=== PATIENT | male | born 1980 | race Caucasian/White ===

== ENCOUNTER 2021-09-07 12:51 | Emergency (ER) | payer MEDICARE, MEDICAID, SELFPAY ==
[2021-09-07 13:23] VITALS: BP 165/108; PULSE 88; RESP 24; TEMP 37; O2SAT 97
--- NOTE | 2021-09-07 13:28 | DI.RAD.S_ITS ---
PROCEDURE: XR CHEST 1V INDICATIONS: chest pain TECHNIQUE: One view of the chest was acquired. COMPARISON: None. FINDINGS: Surgical changes and devices: None. Lungs and pleura: Lungs are clear. No pleural effusions or pneumothorax. Mediastinum: Mediastinal contours appear normal. Heart size is normal. Bones and chest wall: No suspicious bony lesions. Overlying soft tissues appear unremarkable. IMPRESSION: No acute process. Dictated by: Daylin Michael M.D. on 09/07/2021 at 13:46 Approved by: Daylin Michael M.D. on 09/07/2021 at 13:46
[2021-09-07 13:48] LABS: Add Manual Diff / Slide Review NO; Basophils Absolute Auto 100 /uL (0-100); Basophils Percent Auto 0.7 % (0-2); Eosinophils Absolute Auto 200 /uL (0-450); Eosinophils Percent Auto 1.7 % (2-4); Hematocrit 43.2 % (41-53); Hemoglobin 14.8 g/dL (13.5-17.5); Lymphocytes Absolute Auto 2700 /uL (1100-4500); Lymphocytes Percent Auto 25.8 % (25-40); Mean Corpuscular HGB Conc 34.2 % (30-36); Mean Corpuscular Hemoglobin 28.8 PG (26-34); Mean Corpuscular Volume 84.3 fL (80-100); Monocytes Absolute Auto 800 /uL (0-900); Monocytes Percent Auto 7.3 % (3-14); Neutrophils Absolute Auto 6700 /uL (1500-7000); Neutrophils Percent Auto 64.5 % (50-75); Platelet Count 248 X10^3/uL (150-400); Red Blood Cell Count 5.13 X10^6/uL (4.5-5.9); Red Cell Distribution Width 14.2 % (11.6-14.8); White Blood Cell Count 10.4 X10^3/uL (4.5-11.0)
[2021-09-07 13:59] LABS: Alanine Aminotransferase 32 IU/L (<50); Albumin 4.3 g/dL (3.5-5.0); Alkaline Phosphatase 79 U/L (38-126); Aspartate Aminotransferase 23 IU/L (17-59); BUN Creatinine Ratio 13.6 (6-22); Bilirubin Total 0.6 mg/dL (0.2-1.3); Blood Urea Nitrogen 9 mg/dL (9-20); Calcium 8.8 mg/dL (8.4-10.2); Carbon Dioxide 26 mmol/L (22-32); Chloride 108 mmol/L (98-107); Creatine Kinase 68 U/L (55-170); Estimated Glomerular Filt Rate > 60 mL/min (>60); Glucose 102 mg/dL (70-100); Potassium 4.2 mmol/L (3.4-5.1); Sodium 143 mmol/L (137-145); Total Protein 7.9 g/dL (6.3-8.2)
[2021-09-07 14:00] LABS: Albumin Globulin Ratio 1.2 (1.0-2.8); Globulin 3.6 g/dL (1.7-4.1); HEMOLYSIS < 15 (0-50); Lipase 50 U/L (23-300)
[2021-09-07 14:12] LABS: Troponin I < 0.012 ng/mL (0.01-0.034)
[2021-09-07 14:22] LABS: D Dimer 396 ng/mL (<230)
--- NOTE | 2021-09-07 14:23 | ED.SOB ---
HPI - SOB/Dyspnea <Karen Lux PA-C - Last Filed: 09/08/21 20:51> General Chief Complaint: Shortness of Breath/Dyspnea Stated Complaint: high blood pressure 179/115, sent by [facility] Time Seen by Provider: 09/07/21 14:00 Source: patient Mode of arrival: Ambulatory History of Present Illness HPI Narrative: 41-year-old male with past medical history anxiety presents to the ED with 3 days of elevated blood pressure, worsening anxiety, dyspnea on exertion, chest pressure. Patient denies fever, chills, nausea, vomiting, abdominal pain, lightheadedness, dizziness, syncope. Patient endorses that he has been under increased stress due to his mother being ill and hospitalized recently. Related Data Allergies Allergy/AdvReac Type Severity Reaction Status Date / Time No Known Drug Allergies Allergy Unverified 09/07/21 11:40 Review of Systems <Karen Lux PA-C - Last Filed: 09/08/21 20:51> Review of Systems ROS Unobtainable: All systems reviewed & are unremarkable except as noted in HPI and below Constitutional Constitutional: Denies chills, Denies fatigue, Denies fever(s), Denies frequent falls, Reports headache(s), Denies lethargy and Denies weakness Eyes Eyes: Denies change in vision, Denies eye discharge, Denies irritation and Denies loss of vision ENT Ears, Nose, Mouth, and Throat: Denies change in voice, Denies dizziness, Reports headache(s), Denies neck pain, Denies sore throat and Denies throat swelling Cardiovascular Cardiovascular: Reports chest pain, Denies irregular heart rhythm, Reports lightheadedness, Denies palpitations, Reports dyspnea, Reports dyspnea on exertion and Denies orthopnea Respiratory Respiratory: Denies cough, Reports dyspnea, Reports dyspnea on exertion and Denies wheezing Gastrointestinal Gastrointestinal: Denies abdominal pain, Denies change in bowel habits, Denies diarrhea, Reports nausea and Denies vomiting Genitourinary Genitourinary: Denies hematuria, Denies flank pain, Denies urinary incontinence and Denies urinary urgency Musculoskeletal Musculoskeletal: Denies back pain, Denies muscle weakness, Denies neck pain, Denies numbness and Denies tingling Integumentary/Breasts Skin/Breast: Denies pruritus, Denies erythema, Denies rash and Denies wounds Neurologic Neurologic: Denies behavioral changes, Denies confusion, Denies dizziness, Denies frequent falls, Reports headache(s), Denies loss of vision, Denies numbness, Denies tingling and Denies weakness Psychiatric Psychiatric: Denies anxiety, Denies behavioral changes, Denies confusion, Denies depression, Denies homicidal ideation and Denies suicidal ideation Endocrine Endocrine: Denies fatigue, Denies flushing and Denies palpitations Hematologic/Lymphatic Hematologic/Lymphatic: Denies easy bruising Allergic/Immunologic Allergic/Immunologic: Denies urticaria, Denies throat swelling and Denies wheezing Patient History <Karen Lux PA-C - Last Filed: 09/08/21 20:51> Medical History Dysuria Gross hematuria High blood pressure Osteoarthritis Surgical History History of hip replacement Hx of appendectomy Hx of circumcision Family History Mother Cancer Father Hypertension CVA (cerebral vascular accident) Social History marital status: number of children: 3 Smoking Status: Current every day smoker Tobacco: How many years used: 10 alcohol intake: current caffeine: No Type(s) of exercise: other frequency: 1-2 times per week Smoking Status: Current every day smoker Exam <Karen Lux PA-C - Last Filed: 09/08/21 20:51> Narrative Exam Narrative: Const General:?cooperative, healthy appearing and comfortable [facility] Head:?normal to inspection Ears:?hearing grossly normal bilaterally Nose:?external nose normal Face and sinus:?normal facial exam and sinuses nontender Mouth:?oral mucosae normal Throat:?posterior oropharynx normal Eyes General:?appearance normal, both eyes and all related structures Neck Neck:?normal visual inspection and no lymphadenopathy noted Resp Effort & Inspection:?normal respiratory effort Auscultation:?clear to auscultation bilaterally Cardio Rate:?regular rate Rhythm:?regular rhythm Bilateral ankle swelling. Not tender to palpation. Neuro General:?patient alert, patient awake and patient oriented x3 Initial Vital Signs Initial Vital Signs: Vital Signs Temperature 98.6 F 09/07/21 13:23 Pulse Rate 88 09/07/21 13:23 Respiratory Rate 24 09/07/21 13:23 Blood Pressure 165/108 H 09/07/21 13:23 Pulse Oximetry 97 09/07/21 13:23 Oxygen Delivery Method 09/07/21 13:23 <Bhargavi Cross DO - Last Filed: 09/09/21 09:32> Initial Vital Signs Initial Vital Signs: Vital Signs Temperature 98.6 F 09/07/21 13:23 Pulse Rate 88 09/07/21 13:23 Respiratory Rate 24 09/07/21 13:23 Blood Pressure 165/108 H 09/07/21 13:23 Pulse Oximetry 97 09/07/21 13:23 Oxygen Delivery Method 09/07/21 13:23 Course <Karen Lux PA-C - Last Filed: 09/08/21 20:51> Orders Ordered: Discontinued Medications Hydroxyzine Pamoate (Hydroxyzine Pamoate 25 Mg Capsule) 50 mg PO NOW ONE Stop: 09/07/21 14:22 Last Admin: 09/07/21 14:28 Dose: 50 mg Documented By: ADK Vital Signs Vital signs: Vital Signs - 8 hr 09/07/21 13:23 09/07/21 15:09 Temperature 98.6 F Pulse Rate 88 69 Respiratory Rate 24 18 Blood Pressure 165/108 H 136/86 Pulse Oximetry 97 Oxygen Delivery Method Room Air <Bhargavi Cross DO - Last Filed: 09/09/21 09:32> Orders Ordered: Discontinued Medications Hydroxyzine Pamoate (Hydroxyzine Pamoate 25 Mg Capsule) 50 mg PO NOW ONE Stop: 09/07/21 14:22 Last Admin: 09/07/21 14:28 Dose: 50 mg Documented By: ADK Vital Signs Vital signs: Vital Signs - 8 hr 09/07/21 13:23 09/07/21 15:09 Temperature 98.6 F Pulse Rate 88 69 Respiratory Rate 24 18 Blood Pressure 165/108 H 136/86 Pulse Oximetry 97 Oxygen Delivery Method Room Air MDM - SOB/Dyspnea <Karen Lux PA-C - Last Filed: 09/08/21 20:51> Lab Data Result diagrams: 09/07/21 13:37 09/07/21 13:37 Labs: Lab Results 09/07/21 09/07/21 09/07/21 Range/Units 13:37 13:37 13:37 WBC 10.4 (4.5-11.0) X10^3/uL RBC 5.13 (4.5-5.9) X10^6/uL Hgb 14.8 (13.5-17.5) g/dL Hct 43.2 (41-53) % MCV 84.3 (80-100) fL MCH 28.8 (26-34) PG MCHC 34.2 (30-36) % RDW 14.2 (11.6-14.8) % Plt Count 248 (150-400) X10^3/uL Neut % (Auto) 64.5 (50-75) % Lymph % (Auto) 25.8 (25-40) % [place] % (Auto) 7.3 (3-14) % Eos % (Auto) 1.7 L (2-4) % Baso % (Auto) 0.7 (0-2) % Neut # (Auto) 6700 (9651-4500) /uL Lymph # (Auto) 2700 (0948-6687) /uL [place] # (Auto) 800 (0-900) /uL Eos # (Auto) 200 (0-450) /uL Baso # (Auto) 100 (0-100) /uL D-Dimer (<230) ng/mL Sodium 143 (137-145) mmol/L Potassium 4.2 (3.4-5.1) mmol/L Chloride 108 H (98-107) mmol/L Carbon Dioxide 26 (22-32) mmol/L BUN 9 (9-20) mg/dL Creatinine 0.66 (0.66-1.25) mg/dL Estimated GFR > 60 (>60) mL/min BUN/Creatinine Ratio 13.6 (6-22) Glucose 102 H (70-100) mg/dL Calcium 8.8 (8.4-10.2) mg/dL Magnesium 2.0 (1.6-2.3) mg/dL Total Bilirubin 0.6 (0.2-1.3) mg/dL AST 23 (17-59) IU/L ALT 32 (<50) IU/L Alkaline Phosphatase 79 (38-126) U/L Total Creatine Kinase 68 (55-170) U/L CK-MB (CK-2) TNP CK-MB (CK-2) Rel Index TNP Troponin I < 0.012 (0.01-0.034) ng/mL NT-Pro-B Natriuret Pep 105 (<125) pg/mL Total Protein 7.9 (6.3-8.2) g/dL Albumin 4.3 (3.5-5.0) g/dL Globulin 3.6 (1.7-4.1) g/dL Albumin/Globulin Ratio 1.2 (1.0-2.8) Lipase 50 (23-300) U/L 09/07/ Range/Units 13:37 WBC (4.5-11.0) X10^3/uL RBC (4.5-5.9) X10^6/uL Hgb (13.5-17.5) g/dL Hct (41-53) % MCV (80-100) fL MCH (26-34) PG MCHC (30-36) % RDW (11.6-14.8) % Plt Count (150-400) X10^3/uL Neut % (Auto) (50-75) % Lymph % (Auto) (25-40) % [place] % (Auto) (3-14) % Eos % (Auto) (2-4) % Baso % (Auto) (0-2) % Neut # (Auto) (2956-3803) /uL Lymph # (Auto) (1680-7154) /uL [place] # (Auto) (0-900) /uL Eos # (Auto) (0-450) /uL Baso # (Auto) (0-100) /uL D-Dimer 396 H (<230) ng/mL Sodium (137-145) mmol/L Potassium (3.4-5.1) mmol/L Chloride (98-107) mmol/L Carbon Dioxide (22-32) mmol/L BUN (9-20) mg/dL Creatinine (0.66-1.25) mg/dL Estimated GFR (>60) mL/min BUN/Creatinine Ratio (6-22) Glucose (70-100) mg/dL Calcium (8.4-10.2) mg/dL Magnesium (1.6-2.3) mg/dL Total Bilirubin (0.2-1.3) mg/dL AST (17-59) IU/L ALT (<50) IU/L Alkaline Phosphatase (38-126) U/L Total Creatine Kinase (55-170) U/L CK-MB (CK-2) CK-MB (CK-2) Rel Index Troponin I (0.01-0.034) ng/mL NT-Pro-B Natriuret Pep (<125) pg/mL Total Protein (6.3-8.2) g/dL Albumin (3.5-5.0) g/dL Globulin (1.7-4.1) g/dL Albumin/Globulin Ratio (1.0-2.8) Lipase (23-300) U/L Imaging Data CT scan - chest: Radiologist's Impression: PROCEDURE:? CT ANGIO CHEST PE PROTOCOL ? INDICATIONS:? SOB, recent surgery, elevated dimer ? TECHNIQUE:? After the administration of intravenous contrast, 2 mm thick sections acquired from the pulmonary apices to the posterior costophrenic angles.? 3-dimensional maximum intensity projection (MIP) coronal and sagittal reformats were then acquired through the thorax.? For radiation dose reduction, the following was used:? automated exposure control, adjustment of mA and/or kV according to patient size.? ? COMPARISON:? [facility], CR, XR CHEST 1V, 09/07/2021, 13:32. ? FINDINGS:? Image quality:? There is slightly suboptimal opacification of the pulmonary arteries, which may be related to patient respiration given more dense contrast material within the aorta and superior vena cava.? This mildly compromises evaluation of peripheral pulmonary arteries. ? Pulmonary arteries:? Pulmonary arteries are normal in size, and demonstrate no intraluminal filling defects to suggest central pulmonary embolism.? ? Lungs and pleura:? Lungs are clear.? No pleural effusions or pneumothorax.? Central and peripheral airways are patent.? ? Mediastinum:? Heart size is normal, without pericardial effusion.? No mediastinal or hilar adenopathy.? Thoracic aorta is normal in caliber and enhancement.? Esophagus is normal in caliber, without hiatal hernia.? ? Bones and chest wall:? No suspicious bony lesions.? Ribs and thoracic spine appear intact throughout.? Thyroid is unremarkable.? Mild bilateral gynecomastia.? No axillary or supraclavicular adenopathy.? ? Abdomen:? The liver is mildly hypoattenuating, consistent with fatty infiltration.? Visualized upper abdominal solid organs appear normal in the early arterial phase of enhancement.? ? IMPRESSION:? 1. No acute pulmonary embolus.? However, evaluation of the peripheral subsegmental pulmonary arteries is mildly compromised by suboptimal opacification of the pulmonary arteries. 2. No acute abnormality is seen in the chest. ? ? Dictated by: Castillo Galvez M.D. on 09/07/2021 at 15:47 ? ? Approved by: Castillo Galvez M.D. on 09/07/2021 at 15:57 ? Chest x-ray: Radiologist's Impression: PROCEDURE:? XR CHEST 1V ? INDICATIONS:? chest pain ? TECHNIQUE:? One view of the chest was acquired.? ? COMPARISON:? None. ? FINDINGS:? ? Surgical changes and devices:? None.? ? Lungs and pleura:? Lungs are clear.? No pleural effusions or pneumothorax.? ? Mediastinum:? Mediastinal contours appear normal.? Heart size is normal.? ? Bones and chest wall:? No suspicious bony lesions.? Overlying soft tissues appear unremarkable.? ? IMPRESSION:? No acute process. ? ? Dictated by: Daylin Michael M.D. on 09/07/2021 at 13:46 ? ? Approved by: Daylin Michael M.D. on 09/07/2021 at 13:46 ? [facility] Narrative Medical decision making narrative: 41-year-old male with past medical history anxiety presents to the ED with 3 days of elevated blood pressure, worsening anxiety, dyspnea on exertion. Concern for ACS versus PE versus pneumonia versus other. Obtained chest x-ray, EKG, labs, troponin, D-dimer. D-dimer elevated. CT PE ordered. CT PE without acute findings. Patient's symptoms likely due to increased stress, anxiety patient's symptoms resolved with hydroxyzine. Patient agreed to monitor his blood pressure at home, follow-up with his PCP for further evaluation treatment. ED return precautions discussed with patient. Patient verbalized understanding. <Bhargavi Cross, DO - Last Filed: 09/09/21 09:32> Lab Data Labs: Lab Results 09/07/21 09/07/21 09/07/21 Range/Units 13:37 13:37 13:37 WBC 10.4 (4.5-11.0) X10^3/uL RBC 5.13 (4.5-5.9) X10^6/uL Hgb 14.8 (13.5-17.5) g/dL Hct 43.2 (41-53) % MCV 84.3 (80-100) fL MCH 28.8 (26-34) PG MCHC 34.2 (30-36) % RDW 14.2 (11.6-14.8) % Plt Count 248 (150-400) X10^3/uL Neut % (Auto) 64.5 (50-75) % Lymph % (Auto) 25.8 (25-40) % [place] % (Auto) 7.3 (3-14) % Eos % (Auto) 1.7 L (2-4) % Baso % (Auto) 0.7 (0-2) % Neut # (Auto) 6700 (2502-5029) /uL Lymph # (Auto) 2700 (3192-6384) /uL [place] # (Auto) 800 (0-900) /uL Eos # (Auto) 200 (0-450) /uL Baso # (Auto) 100 (0-100) /uL D-Dimer (<230) ng/mL Sodium 143 (137-145) mmol/L Potassium 4.2 (3.4-5.1) mmol/L Chloride 108 H (98-107) mmol/L Carbon Dioxide 26 (22-32) mmol/L BUN 9 (9-20) mg/dL Creatinine 0.66 (0.66-1.25) mg/dL Estimated GFR > 60 (>60) mL/min BUN/Creatinine Ratio 13.6 (6-22) Glucose 102 H (70-100) mg/dL Calcium 8.8 (8.4-10.2) mg/dL Magnesium 2.0 (1.6-2.3) mg/dL Total Bilirubin 0.6 (0.2-1.3) mg/dL AST 23 (17-59) IU/L ALT 32 (<50) IU/L Alkaline Phosphatase 79 (38-126) U/L Total Creatine Kinase 68 (55-170) U/L CK-MB (CK-2) TNP CK-MB (CK-2) Rel Index TNP Troponin I < 0.012 (0.01-0.034) ng/mL NT-Pro-B Natriuret Pep 105 (<125) pg/mL Total Protein 7.9 (6.3-8.2) g/dL Albumin 4.3 (3.5-5.0) g/dL Globulin 3.6 (1.7-4.1) g/dL Albumin/Globulin Ratio 1.2 (1.0-2.8) Lipase 50 (23-300) U/L // Range/Units 13:37 WBC (4.5-11.0) X10^3/uL RBC (4.5-5.9) X10^6/uL Hgb (13.5-17.5) g/dL Hct (41-53) % MCV (80-100) fL MCH (26-34) PG MCHC (30-36) % RDW (11.6-14.8) % Plt Count (150-400) X10^3/uL Neut % (Auto) (50-75) % Lymph % (Auto) (25-40) % [place] % (Auto) (3-14) % Eos % (Auto) (2-4) % Baso % (Auto) (0-2) % Neut # (Auto) (2726-2454) /uL Lymph # (Auto) (6259-6718) /uL [place] # (Auto) (0-900) /uL Eos # (Auto) (0-450) /uL Baso # (Auto) (0-100) /uL D-Dimer 396 H (<230) ng/mL Sodium (137-145) mmol/L Potassium (3.4-5.1) mmol/L Chloride (98-107) mmol/L Carbon Dioxide (22-32) mmol/L BUN (9-20) mg/dL Creatinine (0.66-1.25) mg/dL Estimated GFR (>60) mL/min BUN/Creatinine Ratio (6-22) Glucose (70-100) mg/dL Calcium (8.4-10.2) mg/dL Magnesium (1.6-2.3) mg/dL Total Bilirubin (0.2-1.3) mg/dL AST (17-59) IU/L ALT (<50) IU/L Alkaline Phosphatase (38-126) U/L Total Creatine Kinase (55-170) U/L CK-MB (CK-2) CK-MB (CK-2) Rel Index Troponin I (0.01-0.034) ng/mL NT-Pro-B Natriuret Pep (<125) pg/mL Total Protein (6.3-8.2) g/dL Albumin (3.5-5.0) g/dL Globulin (1.7-4.1) g/dL Albumin/Globulin Ratio (1.0-2.8) Lipase (23-300) U/L ECG Data Interpretation: rupal-normal sinus rhythm with a NH interval 158 QRS 74 QTC 433 Discharge Plan Departure Patient Disposition: Home Clinical Impression: SOB (shortness of breath) Instructions: DI for High Blood Pressure Activity Restrictions/Additional Instructions: You were evaluated in the ED today for chest pain, shortness of breath. Your chest x-ray, EKG were normal. Given that your D-dimer value was elevated, we did a CT of the chest to rule out a pulmonary embolism or blood clots in your lungs. Your CT was without acute findings. Your high blood pressure readings today could be attributed to anxiety, stress, however it could also be that your blood pressure is tending to be elevated on a regular basis. Please obtain a blood pressure cuff and record your blood pressures daily at home. Please follow-up with your PCP with a blood pressure readings for further evaluation and treatment. Return to the ED if your symptoms worsen, you have worsening chest pain, shortness of breath, nausea, vomiting. Visit Report Forms: Patient Portal/API <Bhargavi Cross DO - Last Filed: 09/09/21 09:32> Cosign ED Attending Cecily Attestation: I was immediately available in the department for consultation. Documentation has been reviewed. I agree with assessment and plan.
[2021-09-07] MEDS: hydrOXYzine pamoate 25 MG CAPSULE 50 MG PO (14:28)
[2021-09-07 14:44] LABS: NT-proBNP (BNP-Adult 18+) 105 pg/mL (<125)
--- NOTE | 2021-09-07 15:04 | DI.CT.S_ITS ---
PROCEDURE: CT ANGIO CHEST PE PROTOCOL INDICATIONS: SOB, recent surgery, elevated dimer TECHNIQUE: After the administration of intravenous contrast, 2 mm thick sections acquired from the pulmonary apices to the posterior costophrenic angles. 3-dimensional maximum intensity projection (MIP) coronal and sagittal reformats were then acquired through the thorax. For radiation dose reduction, the following was used: automated exposure control, adjustment of mA and/or kV according to patient size. COMPARISON: [facility], CR, XR CHEST 1V, 09/07/2021, 13:32. FINDINGS: Image quality: There is slightly suboptimal opacification of the pulmonary arteries, which may be related to patient respiration given more dense contrast material within the aorta and superior vena cava. This mildly compromises evaluation of peripheral pulmonary arteries. Pulmonary arteries: Pulmonary arteries are normal in size, and demonstrate no intraluminal filling defects to suggest central pulmonary embolism. Lungs and pleura: Lungs are clear. No pleural effusions or pneumothorax. Central and peripheral airways are patent. Mediastinum: Heart size is normal, without pericardial effusion. No mediastinal or hilar adenopathy. Thoracic aorta is normal in caliber and enhancement. Esophagus is normal in caliber, without hiatal hernia. Bones and chest wall: No suspicious bony lesions. Ribs and thoracic spine appear intact throughout. Thyroid is unremarkable. Mild bilateral gynecomastia. No axillary or supraclavicular adenopathy. Abdomen: The liver is mildly hypoattenuating, consistent with fatty infiltration. Visualized upper abdominal solid organs appear normal in the early arterial phase of enhancement. IMPRESSION: 1. No acute pulmonary embolus. However, evaluation of the peripheral subsegmental pulmonary arteries is mildly compromised by suboptimal opacification of the pulmonary arteries. 2. No acute abnormality is seen in the chest. Dictated by: Castillo Galvez M.D. on 09/07/2021 at 15:47 Approved by: Castillo Galvez M.D. on 09/07/2021 at 15:57
[2021-09-07 15:09] VITALS: BP 136/86; PULSE 69; RESP 18
== END 2021-09-07 16:15 | disposition home or self-care (01) ==
PROVIDERS: Emergency Medicine; Emergency Provider Student in an Organized Health Care Education/Training Program
DX: R06.02 Shortness of breath (principal); R07.9 Chest pain, unspecified; R51.9 Headache, unspecified; I10 Essential (primary) hypertension; R79.89 Other specified abnormal findings of blood chemistry; R31.0 Gross hematuria; R30.0 Dysuria
CPT/HCPCS: 36415; 51798; 71045; 71275; 80053; 81002; 82550; 83690; 83735; 83880; 84484; 85025; 85379; 93005; 99215; 99284; Q9967

== ENCOUNTER → 2021-12-17 12:54 | Outpatient (CLI) | payer MEDICARE, SELFPAY ==
--- NOTE | 2021-12-17 12:57 | DI.CT.S_ITS ---
PROCEDURE: CT IVP A/P W/WO INDICATIONS: Pre- operative TECHNIQUE: Optional 5 mm thick noncontrast images acquired from the diaphragm to the symphysis pubis. After the administration of intravenous contrast, 5 mm thick images acquired from the diaphragm to the symphysis pubis after a 10-minute delay. 2 mm thick coronal and sagittal reformats were then performed of the kidneys and ureters. For radiation dose reduction, the following was used: automated exposure control, adjustment of mA and/or kV according to patient size. COMPARISON: [facility], CT, CT ABDOMEN PELVIS WITH CONTRAST, 06/22/2021, 10:40. FINDINGS: Image quality: Excellent. Lung bases: Lung bases are clear. Heart size is normal. Urinary system: Both kidneys are normal in size, without hydronephrosis or nephrolithiasis on pre-contrast images. Subcentimeter right medial lower pole AML. No perinephric fat stranding. There is normal bilateral renal enhancement. Renal calyces appear normal in morphology when filled with contrast. The opacified right ureter is normal. There is mild ectasia of the left mid to distal ureter for a long segment. No wall thickening or distal obstruction visible. Bladder wall thickness is normal. No calcified bladder stones. Other solid organs: Liver is normal in size and enhancement. Gallbladder is normal . Biliary system is non dilated. Pancreas enhances normally. Spleen is normal in size and enhancement. No adrenal nodules. Peritoneum and bowel: Mild diverticulosis of the proximal sigmoid colon. Mild diverticulosis of the colon at the hepatic flexure. The appendix is surgically absent. Stomach and small bowel loops are unremarkable. No free fluid or free air. Nodes and vessels: No retroperitoneal or mesenteric adenopathy by size criteria. Aorta and inferior vena cava are normal in size. Abdominal wall: No ventral hernias. Pelvis: No pathologic free pelvic fluid. No inguinal hernias or adenopathy. Relative atrophy of the bilateral anterior pelvic and upper thigh musculature. Bones: Right hip arthroplasty change. No suspicious bone lesions or vertebral body fractures. IMPRESSION: 1. Tiny right lower pole angiomyolipoma. 2. Nonspecific mild left distal ureteral ectasia. 3. Occasional colonic diverticulosis. Dictated by: Anel Garcia M.D. on 12/17/2021 at 16:12 Approved by: Anel Garcia M.D. on 12/17/2021 at 16:18
== END ==
PROVIDERS: Referring Provider Specialist; Visit Provider Specialist
DX: R31.0 Gross hematuria (principal); R30.0 Dysuria; N28.89 Other specified disorders of kidney and ureter; K57.30 Diverticulosis of large intestine without perforation or abscess without bleeding
CPT/HCPCS: 74178; Q9967

== ENCOUNTER 2022-10-06 13:05 | Emergency (ER) | payer MEDICARE, SELFPAY ==
[2022-10-06] VITALS (30 sets, daily range): BP systolic 135–177; BP diastolic 68–100; PULSE 71–94; RESP 14–24; TEMP 36.4; O2SAT 93–98; BMI 41.5
--- NOTE | 2022-10-06 13:24 | DI.RAD.S_ITS ---
PROCEDURE: XR CHEST 1V INDICATIONS: chest pain TECHNIQUE: One view of the chest was acquired. COMPARISON: [facility], CR, XR CHEST 1V, 09/07/2021, 13:32. FINDINGS: Surgical changes and devices: None. Lungs and pleura: Lungs are clear. No pleural effusions or pneumothorax. Mediastinum: Mediastinal contours appear normal. Heart size is normal. Bones and chest wall: No suspicious bony lesions. Overlying soft tissues appear unremarkable. IMPRESSION: No acute cardiopulmonary process. Dictated by: Jamal Pepper M.D. on 10/06/2022 at 14:29 Approved by: Jamal Pepepr M.D. on 10/06/2022 at 14:32
[2022-10-06 13:45] LABS: Add Manual Diff / Slide Review NO; Basophils Absolute Auto 100 /uL (0-100); Basophils Percent Auto 0.8 % (0-2); Eosinophils Absolute Auto 100 /uL (0-450); Eosinophils Percent Auto 1.7 % (2-4); Hematocrit 46.2 % (41-53); Hemoglobin 15.8 g/dL (13.5-17.5); Lymphocytes Absolute Auto 2000 /uL (1100-4500); Lymphocytes Percent Auto 22.7 % (25-40); Mean Corpuscular HGB Conc 34.1 % (30-36); Mean Corpuscular Hemoglobin 28.4 PG (26-34); Mean Corpuscular Volume 83.3 fL (80-100); Monocytes Absolute Auto 700 /uL (0-900); Monocytes Percent Auto 8.4 % (3-14); Neutrophils Absolute Auto 5700 /uL (1500-7000); Neutrophils Percent Auto 66.4 % (50-75); Platelet Count 265 X10^3/uL (150-400); Red Blood Cell Count 5.55 X10^6/uL (4.5-5.9); Red Cell Distribution Width 13.9 % (11.6-14.8); White Blood Cell Count 8.6 X10^3/uL (4.5-11.0)
[2022-10-06 13:50] LABS: HEMOLYSIS < 15 (0-50); INR 0.9 (0.9-1.3); Prothrombin Time 10.7 SECONDS (10.1-12.7)
[2022-10-06 13:53] LABS: PTT Partial Thromboplastin Tim 31 SECONDS (26-36)
[2022-10-06 13:55] LABS: Alanine Aminotransferase 42 IU/L (<50); Albumin 4.4 g/dL (3.5-5.0); Albumin Globulin Ratio 1.2 (1.0-2.8); Alkaline Phosphatase 65 U/L (38-126); Aspartate Aminotransferase 27 IU/L (17-59); Bilirubin Total 0.8 mg/dL (0.2-1.3); Blood Urea Nitrogen 11 mg/dL (9-20); Calcium 9.8 mg/dL (8.4-10.2); Carbon Dioxide 25 mmol/L (22-32); Chloride 102 mmol/L (98-107); Creatine Kinase 102 U/L (55-170); Estimated Glomerular Filt Rate > 60 mL/min (>60); Globulin 3.8 g/dL (1.7-4.1); Glucose 88 mg/dL (70-100); Lipase 82 U/L (23-300); Magnesium 1.9 mg/dL (1.6-2.3); Sodium 137 mmol/L (137-145); Total Protein 8.2 g/dL (6.3-8.2)
[2022-10-06] MEDS: ASPIRIN 81 MG CHEW TAB 324 MG PO (14:00)
[2022-10-06 14:08] LABS: Troponin I < 0.012 ng/mL (0.01-0.034)
[2022-10-06 14:42] LABS: D Dimer 452 ng/ml (<500)
[2022-10-06 14:51] LABS: C-Reactive Protein Quant 0.6 mg/dL (<1.0)
[2022-10-06 14:58] LABS: Erythrocyte Sedimentation Rate 23 MM/HR (0-15)
--- NOTE | 2022-10-06 15:32 | ED_ITS ---
HPI - Chest Pain General Chief Complaint: Chest Pain Stated Complaint: chest pain T-2/ dizzy/ nausea Time Seen by Provider: 10/06/22 14:13 Source: patient Mode of arrival: Ambulatory Limitations: no limitations History of Present Illness HPI narrative: 42-year-old male former smoker with history of cardiac arrest after a combination of pain meds and alcohol presents with 2-3 days of central chest pain. He admits to nausea, dizziness, sweating and shortness of breath. He denies any obvious provocation or palliation nor radiation of his pain. He denies recent travel, trauma or injury. Related Data Home Medications Medication Instructions Recorded Confirmed amlodipine 2.5 mg tablet 2.5 mg PO DAILY 12/21/21 12/21/21 hydrochlorothiazide 12.5 mg capsule 12.5 mg PO DAILY 12/21/21 12/21/21 Previous Rx's Medication Instructions Recorded pantoprazole 40 mg tablet,delayed 40 mg PO DAILY #30 tabs 10/06/22 release (Protonix) Allergies Allergy/AdvReac Type Severity Reaction Status Date / Time No Known Drug Allergies Allergy Unverified 12/21/21 09:22 Patient History Medical History Dysuria Gross hematuria High blood pressure Osteoarthritis Surgical History History of hip replacement Hx of appendectomy Hx of circumcision Family History Mother Cancer Father Hypertension CVA (cerebral vascular accident) Social History marital status: number of children: 3 Smoking Status: Never smoker Tobacco: How many years used: 10 alcohol intake: current caffeine: No Type(s) of exercise: other frequency: 1-2 times per week Smoking Status: Never smoker alcohol intake frequency: a few times a week Substance Use Type: marijuana Exam Narrative Exam Narrative: GENERAL: Denies chills, fatigue, malaise, fever, sweats. HEENT: Denies sinus pain, ear pain, sore throat, difficulty swallowing, dizziness. RESPIRATORY: See HPI CARDIOVASCULAR: See HPI GASTROINTESTINAL: Denies nausea, vomiting, abdominal pain, diarrhea, constipation, melena. : Denies dysuria, frequency, incontinence, hematuria, urinary retention. MUSCULOSKELETAL: denies weakness, joint pain, or bony pain SKIN: Denies rash, skin lesions, or other NEUROLOGIC: Denies weakness, headache, numbness, change in speech, confusion, seizures, incoordination. PSYCHIATRIC: No concerning psychosocial issues. 12 point review of systems is negative except for those stated above Initial Vital Signs Initial Vital Signs: Vital Signs Temperature 97.5 F L 10/06/22 13:09 Pulse Rate 81 10/06/22 13:09 Respiratory Rate 18 10/06/22 13:09 Blood Pressure 153/93 H 10/06/22 13:09 Pulse Oximetry 98 10/06/22 13:09 Oxygen Delivery Method Room Air 10/06/22 13:09 Course Orders Ordered: Discontinued Medications Aspirin (Aspirin 81 Mg Chew Tab) 324 mg PO NOW ONE Stop: 10/06/22 13:25 Last Admin: 10/06/22 14:00 Dose: 324 mg Documented By: MAYO Sodium Chloride (Normal Saline 0.9%) 1,000 mls @ 1,000 mls/hr IV BOLUS ONE Stop: 10/06/22 16:39 Last Infusion: 10/06/22 16:55 Dose: 0 mls/hr Documented By: Admin: 10/06/22 15:55 Dose: 1,000 mls/hr Documented By: MAYO Nitroglycerin (Nitroglycerin 0.4 Mg Sl Tab) 0.4 mg SL [id number] PRN PRN Reason: Chest Pain Last Admin: 10/06/22 16:57 Dose: 0.4 mg Documented By: Admin: 10/06/22 16:25 Dose: 0.4 mg Documented By: Admin: 10/06/22 16:04 Dose: 0.4 mg Documented By: MAYO Pantoprazole Sodium (Pantoprazole 40 Mg Vial) 40 mg IV NOW ONE Stop: 10/06/22 15:41 Last Admin: 10/06/22 15:55 Dose: 40 mg Documented By: MAYO Vital Signs Vital signs: Vital Signs - 8 hr 10/06/22 13:09 10/06/22 13:41 10/06/22 13:41 Temperature 97.5 F L Pulse Rate 81 75 Respiratory Rate 18 18 Blood Pressure 153/93 H 142/76 H Pulse Oximetry 98 98 Oxygen Delivery Method Room Air 10/06/22 13:43 10/06/22 13:43 10/06/22 13:45 Temperature Pulse Rate 74 Respiratory Rate 20 Blood Pressure 158/90 H 158/97 H Pulse Oximetry 97 Oxygen Delivery Method 10/06/22 13:45 10/06/22 14:00 10/06/22 14:00 Temperature Pulse Rate 76 76 Respiratory Rate 23 19 Blood Pressure 166/96 H Pulse Oximetry 95 98 Oxygen Delivery Method 10/06/22 14:15 10/06/22 14:15 10/06/22 14:30 Temperature Pulse Rate 72 Respiratory Rate 22 Blood Pressure 163/98 H 168/91 H Pulse Oximetry 96 Oxygen Delivery Method 10/06/22 14:30 10/06/22 14:45 10/06/22 14:45 Temperature Pulse Rate 71 79 Respiratory Rate 21 Blood Pressure 177/100 H Pulse Oximetry 97 96 Oxygen Delivery Method 10/06/22 15:00 10/06/22 15:00 10/06/22 15:15 Temperature Pulse Rate 73 73 Respiratory Rate 18 17 Blood Pressure 169/95 H Pulse Oximetry 98 96 Oxygen Delivery Method 10/06/22 15:15 Temperature Pulse Rate Respiratory Rate Blood Pressure 174/100 H Pulse Oximetry Oxygen Delivery Method MDM - Chest Pain Lab Data 10/06/22 13:34 10/06/22 13:34 Labs: Lab Results 10/06/22 10/06/22 10/06/22 Range/Units 13:34 13:34 13:34 WBC 8.6 (4.5-11.0) X10^3/uL RBC 5.55 (4.5-5.9) X10^6/uL Hgb 15.8 (13.5-17.5) g/dL Hct 46.2 (41-53) % MCV 83.3 (80-100) fL MCH 28.4 (26-34) PG MCHC 34.1 (30-36) % RDW 13.9 (11.6-14.8) % Plt Count 265 (150-400) X10^3/uL Neut % (Auto) 66.4 (50-75) % Lymph % (Auto) 22.7 L (25-40) % [place] % (Auto) 8.4 (3-14) % Eos % (Auto) 1.7 L (2-4) % Baso % (Auto) 0.8 (0-2) % Neut # (Auto) 5700 (9886-5618) /uL Lymph # (Auto) 2000 (5418-6049) /uL [place] # (Auto) 700 (0-900) /uL Eos # (Auto) 100 (0-450) /uL Baso # (Auto) 100 (0-100) /uL ESR (0-15) MM/HR PT 10.7 (10.1-12.7) SECONDS INR 0.9 (0.9-1.3) APTT 31 (26-36) SECONDS D-Dimer (<500) ng/ml Sodium 137 (137-145) mmol/L Potassium 4.0 (3.4-5.1) mmol/L Chloride 102 (98-107) mmol/L Carbon Dioxide 25 (22-32) mmol/L BUN 11 (9-20) mg/dL Creatinine 0.61 L (0.66-1.25) mg/dL Estimated GFR > 60 (>60) mL/min BUN/Creatinine Ratio 18.0 (6-22) Glucose 88 (70-100) mg/dL Calcium 9.8 (8.4-10.2) mg/dL Magnesium 1.9 (1.6-2.3) mg/dL Total Bilirubin 0.8 (0.2-1.3) mg/dL AST 27 (17-59) IU/L ALT 42 (<50) IU/L Alkaline Phosphatase 65 (38-126) U/L Total Creatine Kinase 102 (55-170) U/L Troponin I < 0.012 (0.01-0.034) ng/mL C-Reactive Protein (<1.0) mg/dL Total Protein 8.2 (6.3-8.2) g/dL Albumin 4.4 (3.5-5.0) g/dL Globulin 3.8 (1.7-4.1) g/dL Albumin/Globulin Ratio 1.2 (1.0-2.8) Lipase 82 (23-300) U/L 10/06/22 10/06/22 10/06/22 Range/Units 13:34 13:34 13:34 WBC (4.5-11.0) X10^3/uL RBC (4.5-5.9) X10^6/uL Hgb (13.5-17.5) g/dL Hct (41-53) % MCV (80-100) fL MCH (26-34) PG MCHC (30-36) % RDW (11.6-14.8) % Plt Count (150-400) X10^3/uL Neut % (Auto) (50-75) % Lymph % (Auto) (25-40) % [place] % (Auto) (3-14) % Eos % (Auto) (2-4) % Baso % (Auto) (0-2) % Neut # (Auto) (4116-2557) /uL Lymph # (Auto) (3921-0029) /uL [place] # (Auto) (0-900) /uL Eos # (Auto) (0-450) /uL Baso # (Auto) (0-100) /uL ESR 23 H (0-15) MM/HR PT (10.1-12.7) SECONDS INR (0.9-1.3) APTT (26-36) SECONDS D-Dimer 452 (<500) ng/ml Sodium (137-145) mmol/L Potassium (3.4-5.1) mmol/L Chloride (98-107) mmol/L Carbon Dioxide (22-32) mmol/L BUN (9-20) mg/dL Creatinine (0.66-1.25) mg/dL Estimated GFR (>60) mL/min BUN/Creatinine Ratio (6-22) Glucose (70-100) mg/dL Calcium (8.4-10.2) mg/dL Magnesium (1.6-2.3) mg/dL Total Bilirubin (0.2-1.3) mg/dL AST (17-59) IU/L ALT (<50) IU/L Alkaline Phosphatase (38-126) U/L Total Creatine Kinase (55-170) U/L Troponin I (0.01-0.034) ng/mL C-Reactive Protein 0.6 (<1.0) mg/dL Total Protein (6.3-8.2) g/dL Albumin (3.5-5.0) g/dL Globulin (1.7-4.1) g/dL Albumin/Globulin Ratio (1.0-2.8) Lipase (23-300) U/L 08/23/23 Range/Units 15:28 WBC (4.5-11.0) X10^3/uL RBC (4.5-5.9) X10^6/uL Hgb (13.5-17.5) g/dL Hct (41-53) % MCV (80-100) fL MCH (26-34) PG MCHC (30-36) % RDW (11.6-14.8) % Plt Count (150-400) X10^3/uL Neut % (Auto) (50-75) % Lymph % (Auto) (25-40) % [place] % (Auto) (3-14) % Eos % (Auto) (2-4) % Baso % (Auto) (0-2) % Neut # (Auto) (4721-8289) /uL Lymph # (Auto) (1433-9148) /uL [place] # (Auto) (0-900) /uL Eos # (Auto) (0-450) /uL Baso # (Auto) (0-100) /uL ESR (0-15) MM/HR PT (10.1-12.7) SECONDS INR (0.9-1.3) APTT (26-36) SECONDS D-Dimer (<500) ng/ml Sodium (137-145) mmol/L Potassium (3.4-5.1) mmol/L Chloride (98-107) mmol/L Carbon Dioxide (22-32) mmol/L BUN (9-20) mg/dL Creatinine (0.66-1.25) mg/dL Estimated GFR (>60) mL/min BUN/Creatinine Ratio (6-22) Glucose (70-100) mg/dL Calcium (8.4-10.2) mg/dL Magnesium (1.6-2.3) mg/dL Total Bilirubin (0.2-1.3) mg/dL AST (17-59) IU/L ALT (<50) IU/L Alkaline Phosphatase (38-126) U/L Total Creatine Kinase (55-170) U/L Troponin I < 0.012 (0.01-0.034) ng/mL C-Reactive Protein (<1.0) mg/dL Total Protein (6.3-8.2) g/dL Albumin (3.5-5.0) g/dL Globulin (1.7-4.1) g/dL Albumin/Globulin Ratio (1.0-2.8) Lipase (23-300) U/L MDM Narrative Medical decision making narrative: [42] year old patient presents with 2-3 days of central chest pain Multiple etiologies for patient's symptoms considered including, but not limited to: [Cardiac ischemia versus pulmonary embolism versus pneumonia versus other] Prior Charts reviewed in our EMR Primary Historian: patient Labs reviewed and interpreted by myself: No leukocytosis or left shift, no signs of anemia, D-dimer below age corrected cutoff, electrolytes within normal limits and troponin negative x2 Patient's symptoms improved over duration of stay with above-stated therapies. Multiple diagnoses considered as noted above. Cardiac ischemia thought unlikely given negative troponin x2, lack of exertional symptoms, exercise intolerance or occlusive findings on EKG. Pulmonary embolism considered but thought unlikely given D-dimer being below the age corrected cutoff. Pneumonia considered but no infiltrate noted on imaging, no rhonchi and no sputum production. Esophageal spasm, reflux and other considered most likely at this point, patient given return precautions and questions answered to his apparent satisfaction Findings and discharge diagnosis discussed with patient/family followed by verbalization of understanding Return precautions discussed with patient/family whom verbalize understanding of diagnosis and plan Discharge Plan Departure Patient Disposition: Home Clinical Impression: Atypical chest pain Instructions: DI for Atypical Chest Pain Activity Restrictions/Additional Instructions: *You have been diagnosed with [atypical chest pain. As we discussed your EKGs and labs are very reassuring and there is no evidence of heart attack. CT scan showed no abnormal findings and blood work would suggest against the likelihood of blood clot] *What to do: *Please continue to take your regular medications as directed. [x ] New medication prescriptions sent to your pharmacy: [ [facility]] [ ] New medication written as a paper prescription [ ] No new medications given *Please follow up with your primary care provider in 2-3 days, call for an appointment. Let them know you were seen in the Emergency Department and that we ask that you be seen in follow up. We will electronically transmit a record of today's note if your PCP is in our system *If you do not have a primary care provider please contact the [facility] Resource line at [phone]. They will ask some questions about your medical history and help get you set up with a doctor in the community. *Return to Emergency Department if you should have any new, worsening or concerning symptoms, such as [fever greater than 101 F, shaking chills, worsening pain, persistent vomiting or other bothersome symptoms] Prescriptions: New pantoprazole [Protonix] 40 mg tablet,delayed release (DR/EC) 40 mg PO DAILY Qty: 30 0RF No Action amlodipine 2.5 mg tablet 2.5 mg PO DAILY hydrochlorothiazide 12.5 mg capsule 12.5 mg PO DAILY Referrals: Miscellaneous,Doctor, MD [Primary Care Provider] - Stand Alone Forms: Patient Portal/API
--- NOTE | 2022-10-06 15:40 | DI.CT.S_ITS ---
PROCEDURE: CT CHEST WO CON INDICATIONS: Short of breath, chest pain TECHNIQUE: Noncontrast 5 mm thick sections acquired from the pulmonary apices to the posterior costophrenic angles. 1 mm lung window, 5 mm thick coronal and sagittal and 7 mm axial MIP reformats were then acquired. For radiation dose reduction, the following was used: automated exposure control, adjustment of mA and/or kV according to patient size. COMPARISON: [facility], CT, CT ANGIO CHEST PE PROTOCOL, 09/07/2021, 15:08. [facility], CR, XR CHEST 1 VIEW, 05/26/2020, 22:34. [facility], CR, XR CHEST 1V, 10/06/2022, 13:56. FINDINGS: Image quality: Excellent. Lungs and pleura: No acute air space opacities. No pleural effusions or pneumothorax. Central and peripheral airways are patent and normal in caliber. Mediastinum: In this patient with this given history, scrutiny is given to abnormal pericardial effusion. There is no pericardial effusion. Heart size is normal. No mediastinal adenopathy by size criteria. Thoracic aorta and central pulmonary arteries are normal in size. Esophagus is normal in caliber. No hiatal hernia. Bones and chest wall: No suspicious bony lesions. No vertebral body compression fractures. No axillary or supraclavicular adenopathy by size criteria. Thyroid gland demonstrates no significant noncontrast abnormality. Abdomen: Visualized upper abdominal solid organs and bowel loops appear normal in the absence of contrast. IMPRESSION: Negative for pericardial effusion. Clear lungs. Dictated by: Kai Marin M.D. on 10/06/2022 at 15:50 Approved by: Kai Marin M.D. on 10/06/2022 at 15:51
[2022-10-06] MEDS: PANTOPRAZOLE 40 MG VIAL IV (15:55)
[2022-10-06] MEDS: SODIUM CHLORIDE 0.9% 1,000 ML 1000 ML IV (15:55)
[2022-10-06] MEDS: NITROGLYCERIN 0.4 MG SL TAB SL ×3 (16:04→16:57)
[2022-10-06 16:05] LABS: Troponin I < 0.012 ng/mL (0.01-0.034)
== END 2022-10-06 17:36 | disposition home or self-care (01) ==
PROVIDERS: Emergency Provider Emergency Medicine
DX: R07.89 Other chest pain (principal)
CPT/HCPCS: 36415; 71045; 71250; 80053; 82550; 83690; 83735; 84484; 85025; 85379; 85610; 85651; 85730; 86140; 93005; 96374; 99284; C9113